=== PATIENT | female | born 1985 | race Two or more races ===

== ENCOUNTER 2017-11-06 14:34 | Emergency (ER) | payer OTHER ==
--- NOTE | 2017-11-06 14:50 | PDOC ---
Rapid Medical Evaluation Time Seen by Provider: 11/06/17 14:46 Medical Evaluation: Allergies Allergy/AdvReac Type Severity Reaction Status Date / Time No Known Allergies Allergy Verified 06/05/14 10:33 11/06/17 14:46 I have performed a brief in-person evaluation of this patient. The patient presents with a chief complaint of: awoke up w/ L sided neck pain x several days while in [place], seen in ED in [facility] and pa w/ patriciol and jean-paul but states pain persists, mostly in her LUE now Pertinent physical exam findings:ttp to L upper arm, FROMI, no ttp to cspine w/ FROMI I have ordered the following:upreg/ua The patient will proceed to the ED for further evaluation. Discharge Disposition - Diagnosis Neck strain - Referrals Referrals: Lashae Bourne MD [Primary Care Provider] - - Patient Instructions - Post Discharge Activity
[2017-11-06 14:51] VITALS: BP 119/78; PULSE 93; TEMP 98.9; BMI 22.6
--- NOTE | 2017-11-06 15:11 | PDOC ---
History of Present Illness - General Chief Complaint: Pain Stated Complaint: PAIN,NUMBNESS Time Seen by Provider: 11/06/17 14:46 - History of Present Illness Initial Comments: 32-year-old female presents for evaluation of cervical spine pain with left arm radiculopathy times a week and a half. She states she was seen in the emergency room in [place] was given a shot of Toradol, a prescription for Naprosyn and Flexeril and she has minimal relief. She has no comorbidities. She takes oral control pills. 11/06/17 15:07 Past History - Past Medical History Allergies/Adverse Reactions: Allergies Allergy/AdvReac Type Severity Reaction Status Date / Time No Known Allergies Allergy Verified 11/06/17 14:46 Home Medications: Ambulatory Orders NK [No Known Home Medication] 06/05/14 Asthma: Yes COPD: No - Suicide/Smoking/Psychosocial Hx Smoking History: Never smoked Hx Alcohol Use: No Substance Use Type: None Review of Systems - Review of Systems Musculoskeletal: Yes: Neck Pain Neurological: Yes: See HPI, Numbness, Tingling All Other Systems: Reviewed and Negative *Physical Exam - Vital Signs Last Vital Signs Temp Pulse Resp BP Pulse Ox 98.9 F 93 H 17 119/78 100 11/06/17 14:47 11/06/17 14:47 11/06/17 14:47 11/06/17 14:47 11/06/17 14:47 - Physical Exam Comments: Cervical spine skin color and temperature are normal. She has decreased range of motion. Mild paracervical musculature spasm. 5 out of 5 strength in bilateral upper extremities. She has a positive Spurling maneuver. The Spurling maneuver produces left arm radicular symptoms. She has no gross sensorimotor deficits or upper extremity compartments are soft and nontender she is neurovascularly intact. 11/06/17 15:08 Medical Decision Making - Medical Decision Making 2-year-old female on an anti-inflammatory as well as a muscle relaxer for her left cervical spine pain and radicular symptoms. I will have her follow-up with spine surgery. I will not give her Medrol Dosepak because of the oral control. I have informed her of this. 11/06/17 15:08 *DC/Admit/Observation/Transfer Diagnosis at time of Disposition: Neck strain, Cervical radicular pain - Discharge Dispostion Disposition: HOME Condition at time of disposition: Stable Decision to Admit order: No - Referrals Referrals: Lashae Bourne MD [Primary Care Provider] - Perez Templeton MD [Staff Physician] - - Patient Instructions Printed Discharge Instructions: DI for Cervical Radiculopathy Additional Instructions: Return to the emergency room should her symptoms worsen or go unresolved. It's important few to follow-up with spine surgery for further evaluation and treatment options. Continue to take the medication as directed. - Post Discharge Activity
[2017-11-06 15:45] LABS: URINE APPEARANCE CLEAR; URINE BILIRUBIN NEGATIVE (<2.0 mg/dL); URINE COLOR YELLOW; URINE GLUCOSE (UA) NEGATIVE (NEGATIVE); URINE KETONE NEGATIVE (NEGATIVE); URINE LEUK ESTERASE TRACE (NEGATIVE); URINE NITRITE NEGATIVE (NEGATIVE); URINE PROTEIN NEGATIVE (NEGATIVE); URINE UROBILINOGEN NEGATIVE mg/dL (0.2-1.0)
[2017-11-06 15:51] LABS: EPI CELLS RARE /HPF (FEW); URINE BACTERIA RARE /hpf (NONE SEEN); URINE MUCUS RARE
[2017-11-06 16:06] LABS: URINE HYALINE CAST 47 /lpf
== END 2017-11-06 15:57 | disposition home or self-care (01) ==
LOC: JERFT 14:34
DX: M54.12 Radiculopathy, cervical region (principal); S16.1XXD Strain of muscle, fascia and tendon at neck level, subsequent encounter; X58.XXXD Exposure to other specified factors, subsequent encounter
CPT/HCPCS: 36415; 81003; 81015; 84703; 87086; 87491; 87591; 99281-25

== ENCOUNTER 2018-03-14 22:23 | Emergency (ER) | payer OTHER ==
[2018-03-14 22:28] VITALS: BP 123/67; PULSE 73; TEMP 97.8; BMI 22.6
--- NOTE | 2018-03-14 22:46 | PDOC ---
History of Present Illness - General Chief Complaint: Burn Stated Complaint: BURN Time Seen by Provider: 03/14/18 22:39 History Source: Patient Exam Limitations: No Limitations - History of Present Illness Initial Comments: Pt is a 32 yo F, with no significant PMH, who is presenting with a burn to the palmar side of the L hand. Around 6 pm this evening, the pt was transferring a pot from the oven to the stove-top, when she felt it start to fall, and caught the pot with her bare L hand. She took 400 mg Advil and topical burn spray OTC from the pharmacy, with minimal relief of pain. 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 Pt denies any loss of strength or sensation in the L hand or fingers, fevers/chills, headache, vision changes, chest pain, palpitations, SOB, nausea/vomiting, abdominal pain, urinary symptoms , diarrhea/constipation, or joint swelling. Pt denies any cigarette, alcohol, or drug use. Pt denies any recent travel or sick contacts. 03/15/18 00:15 Past History - Travel Traveled outside of the country in the last 30 days: No Close contact w/someone who was outside of country & ill: No - Past Medical History Allergies/Adverse Reactions: Allergies Allergy/AdvReac Type Severity Reaction Status Date / Time shellfish derived Allergy Mild Itching Verified 03/14/18 22:58 Home Medications: Ambulatory Orders NK [No Known Home Medication] 06/05/14 Asthma: Yes COPD: No Diabetes: No - Suicide/Smoking/Psychosocial Hx Smoking History: Never smoked Have you smoked in the past 12 months: No Information on smoking cessation initiated: No Hx Alcohol Use: No Drug/Substance Use Hx: No Substance Use Type: None Review of Systems - Review of Systems Able to Perform ROS?: Yes Is the patient limited Latvian proficient: No Constitutional: Yes: Weight Stable. No: Chills, Diaphoresis, Fever, Malaise, Weakness HEENTM: No: Recent change in vision, Nose Congestion, Hearing Loss, Throat Pain , Difficulty Swallowing Respiratory: No: Cough, Orthopnea, Shortness of Breath Cardiac (ROS): No: Chest Pain, Edema, Irregular Heart Rate, Lightheadedness, Palpitations, Syncope, Chest Tightness ABD/GI: No: Constipated, Diarrhea, Nausea, Poor Appetite, Poor Fluid Intake, Vomiting, Abdominal cramping : No: Burning, Pain, Urgency Musculoskeletal: No: Back Pain, Joint Pain, Joint Swelling, Muscle Pain, Muscle Weakness Integumentary: Yes: Change in Color (redness over L palm, see HPI), Erythema. No: Bruising, Lesions, Rash Neurological: No: Headache, Paresthesia, Tingling, Weakness, Unsteady Gait, Ataxia, Dizziness Psychiatric: No: Sleep Pattern Change, Change in Appetite Endocrine: No: Increased Urine, Change in Weight Hematologic/Lymphatic: No: Anemia, Blood Clots, Easy Bleeding, Easy Bruising All Other Systems: Reviewed and Negative *Physical Exam - Vital Signs Last Vital Signs Temp Pulse Resp BP Pulse Ox 97.8 F 73 16 123/67 100 03/14/18 22:25 03/14/18 22:25 03/14/18 22:25 03/14/18 22:25 03/14/18 22:25 - Physical Exam General Appearance: Yes: Nourished, Appropriately Dressed. No: Apparent Distress (pt lying comfortably, vitals stable, NAD) HEENT: positive: EOMI, PRIYANKA, Normal ENT Inspection, Normal Voice, Symmetrical, Pharynx Normal, Hearing Grossly Normal. negative: Scleral Icterus (R), Scleral Icterus (L), Pharyngeal Erythema, Tonsillar Exudate, Tonsillar Erythema, Nasal Congestion Neck: positive: Trachea midline, Normal Thyroid, Supple. negative: Tender, Rigid, Lymphadenopathy (R), Lymphadenopathy (L), Rigidity Respiratory/Chest: positive: Lungs Clear, Normal Breath Sounds. negative: Chest Tender, Respiratory Distress, Accessory Muscle Use, Crackles, Wheezing Cardiovascular: positive: Regular Rhythm, Regular Rate, S1, S2. negative: Edema , JVD, Murmur Vascular Pulses: Carotid (R): 4+, Carotid (L): 4+ (radial pulse +4 b/l) Gastrointestinal/Abdominal: positive: Normal Bowel Sounds, Flat, Soft. negative : Tender, Organomegaly, Pulsatile Mass, Distended, Guarding, Rebound Rectal Exam: positive: deferred Lymphatic: negative: Adenopathy, Tenderness Musculoskeletal: positive: Normal Inspection. negative: CVA Tenderness Extremity: positive: Normal Capillary Refill, Normal Inspection, Normal Range of Motion, Pelvis Stable. negative: Tender, Cyanosis, Pedal Edema, Erythema Integumentary: positive: Dry, Warm, Erythema (area of erythema over thumb-side of L palm, extending to proximal thumb and proximal index finger). negative: Normal Color, Rash, Ecchymosis, Bruising, Other (blisters or open skin) Neurologic: positive: pattern grader cutter II-XII NML intact, Fully Oriented, Alert, Normal Mood/ Affect, Normal Response, Motor Strength 5/5. negative: Numbness, Sensory Deficit, Other (no decreased sensation or decreased strength over L hand or fingers. L hand neurovascularly intact.) Medical Decision Making - Medical Decision Making Pt was seen at bedside, also will be seen by attending Dr. Ambriz. Pt presenting with a burn to the palmar side of the L hand. Around 6 pm this evening, the pt was transferring a pot from the oven to the stove-top, when she felt it start to fall, and caught the pot with her bare L hand. She took 400 mg Advil and topical burn spray OTC from the pharmacy, with minimal relief of pain. 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 Pt denies any loss of strength or sensation in the L hand or fingers, fevers/chills, headache , vision changes, chest pain, palpitations, SOB, nausea/vomiting, abdominal pain , urinary symptoms, diarrhea/constipation, or joint swelling. PE showed first-degree superficial burn (no blistering, weeping, or open areas of the skin) over L palmar region, extending to the proximal thumb and proximal index finger (<1% BSA). Pt has intact strength and sensation in the hand and fingers of the L hand, intact ROM of whole L hand and fingers (opposition, flexion, extension). Provided 1 percocet tablet, bacitracin ointment, and krelex wrap for improvement of pain and antibiotic control of burn area. Will continue to reassess pt and monitor for symptomatic improvement. 03/14/18 23:36 Pt declined percocet tablet, as it makes her nauseous, provided 650 mg Tylenol instead. Cleaned the area with sterile saline, applied silvedene ointment, and sterile krelex wrap. Advised pt about keeping the area clean with warm water and soap, and applying the ointment. Also providing 1 tube of bacitracin ointment from the pharmacy to take home. Considering benign exam, pt can be discharged to home with follow-up. Pt advised to follow-up with PCP in 1-2 days. Strict return precautions provided with pt understanding. 03/15/18 00:05 *DC/Admit/Observation/Transfer Diagnosis at time of Disposition: Burn, hand, first degree Qualifiers: Encounter type: initial encounter Burn of hand location: multiple sites Laterality: left Qualified Code(s): T23.192A - Burn of first degree of multiple sites of left wrist and hand, initial encounter - Discharge Dispostion Disposition: HOME Condition at time of disposition: Good Decision to Admit order: No - Referrals Referrals: Lashae Bourne MD [Primary Care Provider] - - Patient Instructions Printed Discharge Instructions: DI for [place] Additional Instructions: You were seen in the ER today for a burn to your hand. Please follow-up with your primary care doctor within 1-2 days to discuss your visit and make sure your symptoms have improved. Please return to the ER if you have any worsening pain, development of bleeding or blisters, development of fevers or chills, loss of consciousness, inability to tolerate food or fluids, or any other concerns. I have provided you with bacitracin ointment and a wrap for your hand. Please keep the area clean with warm water and soap, and apply the bacitracin ointment after it is cleaned. Please keep the area wrapped while you are at work. - Post Discharge Activity
--- NOTE | 2018-03-14 22:48 | PDOC ---
Attending Attestation - HPI HPI: 03/14/18 23:36 The patient is a 32 year old female, with no significant PMH who presents to the emergency department with a burn to the palm of her left hand at 6PM today. Patient states she was transferring a pot from the oven to the stove when she was burned. Patient immediately rinsed the area with water and has not noticed any blistering. Patient took 400mg of advil with no improvement. Patient is able to flex her fingers. The patient denies chest pain, shortness of breath, headache and dizziness. Denies fever, chills, nausea, vomit, diarrhea and constipation. Denies dysuria, frequency, urgency and hematuria. Allergies: NKA Past surgical history: None reported. Social history: No reported alcohol, drug or cigarette use. PCP: Dr. Fajardo - Physicial Exam PE: 03/14/18 23:37 agree with resident exam <Daniella Lewis - Last Filed: 03/14/18 23:36> - Resident Resident Name: Katelyn Anton - ED Attending Attestation I have performed the following: I have examined & evaluated the patient, The case was reviewed & discussed with the resident, I agree w/resident's findings & plan - HPI HPI: 03/14/18 23:33 agree with resident exam - Physicial Exam PE: 03/15/18 00:37 Pt has less than 18% of plamar area burned. Pt maintains good flexion and extension - Medical Decision Making 03/15/18 00:36 Pt will be given tdap; home with bacitracin to the burned area. Silvadene cream applied here. Pt will return for cellulitis <Kristin Ambriz - Last Filed: 03/15/18 00:37>
[2018-03-14] MEDS ORDERED: DIPHTH,PERTUSS(ACELL),TET 0.5 ML DISP.SYRIN IM ONE (23:35)
[2018-03-14] MEDS ORDERED: SILVER SULFADIAZINE 1% TOP CREAM 50 GM JAR TP ONE ×2 (23:52→23:54)
[2018-03-14] MEDS ORDERED: ACETAMINOPHEN 325 MG TABLET (FP) PO ONE (23:57)
[2018-03-15] MEDS ORDERED: ACETAMINOPHEN 325 MG TABLET (FP) ONE
[2018-03-15] MEDS ORDERED: BACITRACIN 15 GM TUBE TOPICAL OINTMENT TP SCH (10:00)
[2018-03-15] MEDS ORDERED: BACITRACIN 15 GM TUBE TOPICAL OINTMENT TP ONE (23:30)
== END 2018-03-15 00:24 | disposition home or self-care (01) ==
LOC: JER 22:23
PROC: 2W2FX4Z Dressing of Left Hand using Bandage (ICD-10-PCS; principal; 2018-03-14)
DX: T23.152A Burn of first degree of left palm, initial encounter (principal); T31.0 Burns involving less than 10% of body surface; X15.3XXA Contact with hot saucepan or skillet, initial encounter; Y93.G1 Activity, food preparation and clean up; Y92.010 Kitchen of single-family (private) house as the place of occurrence of the external cause; Y99.8 Other external cause status
CPT/HCPCS: 16020; 90715; 99282-25

== ENCOUNTER 2019-12-24 08:38 | Emergency (ER) | payer OTHER ==
[2019-12-24 08:52] VITALS: BP 136/82; PULSE 97; BMI 22.6
[2019-12-24 08:57] VITALS: TEMP 97.8
[2019-12-24] MEDS ORDERED: KETOROLAC TROMETHAMINE 30 MG/1 ML VIAL IM ONE (09:17)
[2019-12-24] MEDS ORDERED: diazePAM 5 MG TABLET PO ONE (09:17)
[2019-12-24] MEDS ORDERED: LIDOCAINE 5% TOPICAL PATCH TP ONE (09:17)
--- NOTE | 2019-12-24 09:18 | PDOC ---
History of Present Illness - General Chief Complaint: Pain, Acute Stated Complaint: SHOULDER PAIN Time Seen by Provider: 12/24/19 08:42 - History of Present Illness Initial Comments: 12/24/19 09:18 HPI: 34 y/o F with no pmh presenting with left shoulder pain. Pain first started 2weeks ago after sleeping on an air mattress and improved however 1 week ago she was moving furniture and the pain was exacerbated. She has been taking ibuprofen and doing heat packs with mild improvement but this morning pain was 10/10 with radiation into neck and scapula. She took ibuprofen around 6am without relief. She reports tingling sensation over the dorsal aspect of her left arm above the elbow. She reports limited motion due to pain. Denies FARR, LH, weakness, chest pain, SOB, abd pain, incontinence, LE weakness. PMHx: as noted above ROS: as noted SHx: Denies tobacco use; no alcohol use; no rec drugs Allergies: NKDA ROS: GENERAL/CONSTITUTIONAL: No fever or chills. No weakness. HEAD, EYES, EARS, NOSE AND THROAT: No change in vision. No ear pain or discharge. No sore throat. CARDIOVASCULAR: No chest pain or shortness of breath RESPIRATORY: No cough, wheezing, or hemoptysis. GASTROINTESTINAL: No nausea, vomiting, diarrhea or constipation. GENITOURINARY: No dysuria, frequency, or change in urination. MUSCULOSKELETAL: +left arm pain. SKIN: No rash NEUROLOGIC: No headache, vertigo, loss of consciousness, or change in strength /sensation. ENDOCRINE: No increased thirst. No abnormal weight change HEMATOLOGIC/LYMPHATIC: No anemia, easy bleeding, or history of blood clots. ALLERGIC/IMMUNOLOGIC: No hives or skin allergy. PE: GENERAL: Awake, alert, and fully oriented, no acute distress HEAD: No signs of trauma, normocephalic, atraumatic EYES: EOMI, sclera anicteric, conjunctiva clear ENT: Auricles normal inspection, hearing grossly normal, nares patent, oropharynx clear without exudates. Moist mucosa NECK: Normal ROM, no lymphadenopathy LUNGS: No increased work of breathing, symmetrical chest rise, clear to auscultation bilaterally, no wheezes, crackles or rhonchi HEART: Regular rate, regular rhythm, normal S1 and S2, no murmur, peripheral pulses 2+ and equal bilaterally. ABDOMEN: Soft, nondistended, nontender. No guarding, no rebound. No masses. No CVAT MUSCULOSKELETAL: limited ROM of LUE at shoulder joint secondary to pain, sensation intact, rn home care str 5/5, ttp along cervical paraspinal muscles, trapezius, scapula, deltoid NEUROLOGICAL: Cranial nerves II through XII grossly intact. Normal speech, stable gait, no focal sensorimotor deficits SKIN: Warm, Dry, normal turgor, no rashes or lesions noted Past History - Medical History Allergies/Adverse Reactions: Allergies Allergy/AdvReac Type Severity Reaction Status Date / Time shellfish derived Allergy Mild Itching Verified 12/24/19 08:48 Home Medications: Ambulatory Orders Diazepam [Valium] 5 mg PO Q8H PRN #10 tablet MDD 3 12/24/19 Ibuprofen [Motrin -] 600 mg PO TID PRN #90 tablet MDD 3 12/24/19 Lidocaine Patch Removal [Lidoderm Patch Removal] 1 each MC DAILY@2200 PRN #30 each MDD 1 12/24/19 Asthma: Yes COPD: No Diabetes: No - Reproductive History Is Patient Now?: No - Immunization History Immunization Up to Date: Yes - Psycho-Social/Smoking History Smoking History: Never smoked Have you smoked in the past 12 months: No Information on smoking cessation initiated: No - Substance Abuse Hx (Audit-C & DAST Scrn) How often the patient has a drink containing alcohol: Never Score: In Men: 4 or > Positive; In Women: 3 or > Positive: 0 Screen Result (Pos requires Nsg. Audit-10AR): Negative In the last yr the pt used illegal drug/Rx for NonMed reason: No Score: Yes response is considered Positive: 0 Screen Result (Positive result requires Nsg. DAST-10): Negative *Physical Exam - Vital Signs Last Vital Signs Temp Pulse Resp BP Pulse Ox 97.8 F 97 H 19 136/82 99 12/24/19 08:43 12/24/19 08:43 12/24/19 08:43 12/24/19 08:43 12/24/19 08:43 Medical Decision Making - Medical Decision Making 12/24/19 11:00 34 y/o F with no pmh presenting with left shoulder pain. VSS, AF. See exam above -toradol, valium, lidoderm patch -reassess 12/24/19 11:00 pain improved DCd with referral to ortho if pain doesnt improve all questions asnwered at this time sent with scripts for ibuprofen, lidroderm, valium Discharge - Discharge Information Problems reviewed: Yes Clinical Impression/Diagnosis: Muscle spasm, Radiculopathy Condition: Improved Disposition: HOME - Additional Discharge Information Prescriptions: Lidocaine Patch Removal [Lidoderm Patch Removal] 1 each MC DAILY@2200 PRN #30 each MDD 1 PRN Reason: Back Pain Ibuprofen [Motrin -] 600 mg PO TID PRN #90 tablet MDD 3 PRN Reason: Back Pain Diazepam [Valium] 5 mg PO Q8H PRN #10 tablet MDD 3 PRN Reason: Pain - Follow up/Referral Referrals: Lashae Bourne MD [Primary Care Provider] - Vidal Ferguson MD [Staff Physician] - Sriram Hwang MD [Staff Physician] - - Patient Discharge Instructions Patient Printed Discharge Instructions: Chronic Neck Pain, DI for Muscle Spasm Additional Instructions: You have muscle spasm in your trapezius. May also have some radicular pain radiating from your neck if this continues he should have an outpatient MRI discussed with your primary doctor for referral return for any sudden weakness numbness or any other concerns. For your symptoms you can take Motrin 600 mg every 8 hours as needed for pain. You can also use a Lidoderm patch to the tender area. You can take a muscle relaxer such as Valium 5 mg every 8 hours as needed for muscle spasm. Do not mix with alcohol or take with the sedatives it can make you very sleepy - Post Discharge Activity
[2019-12-24] MEDS ORDERED: diazePAM 5 MG TABLET ONE (09:22)
[2019-12-24] MEDS ORDERED: KETOROLAC TROMETHAMINE 30 MG/1 ML VIAL ONE (09:22)
[2019-12-24] MEDS ORDERED: LIDOCAINE 5% TOPICAL PATCH ONE (09:22)
--- NOTE | 2019-12-24 10:00 | PDOC ---
Documentation entered by Messi Lucas SCRIBE, acting as scribe for Madiha Rocha MD. Madiha Rocha MD: This documentation has been prepared by the Shayy stokes Xhesika, SCRIBE, under my direction and personally reviewed by me in its entirety. I confirm that the documentation accurately reflects all work, treatment, procedures, and medical decision making performed by me. Attending Attestation - Resident Resident Name: MelecioSonam - ED Attending Attestation I have performed the following: I have examined & evaluated the patient, The case was reviewed & discussed with the resident, I agree w/resident's findings & plan, Exceptions are as noted - HPI HPI: 12/24/19 09:16 The patient is a 34 year old female with no significant PMH of who presents to the emergency department for 2 weeks of L shoulder and neck pain. Pt states 2 weeks ago she fell asleep on her air mattress which caused her symptoms, was taking ibuprofen and using patches with improvement of symptoms. Pt states on Thursday (12/19/19), she was moving furniture which re-exacerbated her pain. Pt reports this morning she woke up in 02/03, severe pain starting at her L scapula radiating to her neck and L arm, prompting his arrival to the ED. Pt denies any weakness or focal deficits. no f/c The patient denies chest pain, shortness of breath, headache and dizziness. Denies fever, chills, cough, nausea, vomiting, diarrhea and constipation. Denies dysuria, frequency, urgency and hematuria. Allergies: NKDA. Shellfish derived PCP: Dr. Miramontes 12/24/19 09:45 - Physicial Exam PE: 12/24/19 09:46 7-year-old female history of hypertension hyperlipidemia hypothyroid CAD status post CABG breast CA status post lumpectomy and multiple prior abdominal surgeries here today complaining of abdominal pain. Patient describes an achy sensation in the epigastrium periumbilical region she has had it for about a week states she has had many ultrasounds in the past and has seen a GI Dr.Aidan ayoub denies any vomiting however today was feeling nauseous the prompted her to come to the ED no fever no chills denies any urinary symptoms no change to her stool no melena or bright red blood per rectum denies any chest pressure or pain and no shortness of breath no fevers no chills. Patient did not take anything for her symptoms and denies any moderating factors - Medical Decision Making 12/24/19 09:47 34-year-old female previous surgeries here today complaining of left trapezial pain neck pain rating down her arm and paresthesia in her left humerus. My exam the patient is neurologically intact is significant trapezial spasm Plan muscle relaxers anti-inflammatories we will send a UCG prior patient is informed that she may require an outpatient MRI should her symptoms persist told no heavy lifting for 1 week also given a Lidoderm patch for her symptoms Discharge - Discharge Information Problems reviewed: Yes Clinical Impression/Diagnosis: Muscle spasm, Radiculopathy Condition: Improved Disposition: HOME - Admission No - Additional Discharge Information Prescriptions: Lidocaine Patch Removal [Lidoderm Patch Removal] 1 each MC DAILY@2200 PRN #30 each MDD 1 PRN Reason: Back Pain Ibuprofen [Motrin -] 600 mg PO TID PRN #90 tablet MDD 3 PRN Reason: Back Pain Diazepam [Valium] 5 mg PO Q8H PRN #10 tablet MDD 3 PRN Reason: Pain - Follow up/Referral Referrals: Lashae Bourne MD [Primary Care Provider] - - Patient Discharge Instructions Patient Printed Discharge Instructions: Chronic Neck Pain, DI for Muscle Spasm Additional Instructions: You have muscle spasm in your trapezius. May also have some radicular pain radiating from your neck if this continues he should have an outpatient MRI discussed with your primary doctor for referral return for any sudden weakness numbness or any other concerns. For your symptoms you can take Motrin 600 mg every 8 hours as needed for pain. You can also use a Lidoderm patch to the tender area. You can take a muscle relaxer such as Valium 5 mg every 8 hours as needed for muscle spasm. Do not mix with alcohol or take with the sedatives it can make you very sleepy - Post Discharge Activity
[2019-12-24] MEDS ORDERED: LIDOCAINE PATCH REMOVAL MC SCH (22:00)
== END 2019-12-24 10:15 | disposition home or self-care (01) ==
LOC: JER 08:38
PROC: 3E0233Z Introduction of Anti-inflammatory into Muscle, Percutaneous Approach (ICD-10-PCS; principal; 2019-12-24)
DX: M62.838 Other muscle spasm (principal); M54.10 Radiculopathy, site unspecified
CPT/HCPCS: 84703; 96372; 99284-25

== ENCOUNTER 2019-12-27 10:53 | Emergency (ER) | payer OTHER ==
[2019-12-27 10:59] VITALS: BP 124/89; PULSE 134; TEMP 98.3; BMI 22.6
[2019-12-27] MEDS ORDERED: diazePAM CARPU-JECT 10 MG/2 ML DISP.SYRIN IVPUSH ONE (11:11)
[2019-12-27] MEDS ORDERED: ACETAMINOPHEN 1000 MG/100 ML VIAL (NON FORMULARY) IVPB ONE (11:11)
[2019-12-27] MEDS ORDERED: ACETAMINOPHEN INJECTION 100 ML IVPB ONE (11:24)
[2019-12-27] MEDS ORDERED: diazePAM CARPU-JECT 10 MG/2 ML DISP.SYRIN ONE (11:24)
--- NOTE | 2019-12-27 12:22 | PDOC ---
History of Present Illness - General Chief Complaint: Pain Stated Complaint: HURT SHOULDER Time Seen by Provider: 12/27/19 11:02 - History of Present Illness Initial Comments: 12/27/19 12:17 34-year-old female without comorbidities presents for right-sided neck pain and arm pain with radicular symptoms. Seen in the emergency room a few days ago given ibuprofen and Valium without much relief. No loss of bowel bladder function or saddle paresthesias. Past History - Medical History Allergies/Adverse Reactions: Allergies Allergy/AdvReac Type Severity Reaction Status Date / Time shellfish derived Allergy Mild Itching Verified 12/27/19 10:56 Home Medications: Ambulatory Orders Diazepam [Valium] 5 mg PO Q8H PRN #10 tablet MDD 3 12/24/19 Ibuprofen [Motrin -] 600 mg PO TID PRN #90 tablet MDD 3 12/24/19 Lidocaine Patch Removal [Lidoderm Patch Removal] 1 each MC DAILY@2200 PRN #30 each MDD 1 12/24/19 Asthma: Yes COPD: No Diabetes: No - Reproductive History Is Patient Now?: No - Immunization History Immunization Up to Date: No - Psycho-Social/Smoking History Smoking History: Never smoked Have you smoked in the past 12 months: No - Substance Abuse Hx (Audit-C & DAST Scrn) How often the patient has a drink containing alcohol: Never Score: In Men: 4 or > Positive; In Women: 3 or > Positive: 0 Screen Result (Pos requires Nsg. Audit-10AR): Negative In the last yr the pt used illegal drug/Rx for NonMed reason: No Score: Yes response is considered Positive: 0 Screen Result (Positive result requires Nsg. DAST-10): Negative Review of Systems - Review of Systems Constitutional: No: Fever : No: Incontinence Musculoskeletal: Yes: Neck Pain *Physical Exam - Vital Signs Last Vital Signs Temp Pulse Resp BP Pulse Ox 98.3 F 134 H 20 124/89 100 12/27/19 10:56 12/27/19 10:56 12/27/19 10:56 12/27/19 10:56 12/27/19 10:56 - Physical Exam 12/27/19 12:18 Cervical spine skin color and temperature normal range of motion is slightly limited. There is no midline tenderness. Mild bilateral paracervical musculature spasm and tenderness. Exquisite right-sided levator scapula tenderness. 5 out of 5 strength bilateral upper extremities without gross sensorimotor deficits neurovascular intact. ED Treatment Course - Medications Given in the ED: ED Medications Discontinued Medications Generic Name Dose Route Start Last Admin Trade Name Timothy PRN Reason Stop Dose Admin Acetaminophen 1,000 mg 12/27/19 11:11 12/27/19 11:28 Ofirmev Injection - IVPB 12/27/19 11:12 1,000 mg ONCE ONE Administration Diazepam 5 mg 12/27/19 11:11 12/27/19 11:28 Valium Injection - IVPUSH 12/27/19 11:12 5 mg ONCE ONE Administration Medical Decision Making - Medical Decision Making 12/27/19 12:18 Pain relieved after IV Ofirmev and Valium. Orthopedic surgery follow-up was stressed. Home exercise stretches shown encouraged gentle massage I have reviewed the pathophysiology with the patient. They are in agreement with the treatment plan all questions were answered to their satisfaction. Understanding for follow-up without fail was also conveyed to the patient. Again they are in agreement. Discharge - Discharge Information Problems reviewed: Yes Clinical Impression/Diagnosis: Cervical radicular pain, Muscle spasm Condition: Stable Disposition: HOME - Admission No - Follow up/Referral Referrals: Dieter Solares DO [Staff Physician] - - Patient Discharge Instructions Additional Instructions: Continue your Valium and ibuprofen. You may also add Tylenol as directed for pain. Return to the emergency room for worsening symptoms and without fail follow-up with orthopedic surgery in 2 to 3 days for further evaluation and treatment options. - Post Discharge Activity
== END 2019-12-27 12:27 | disposition home or self-care (01) ==
LOC: JERFT 10:53
PROC: 3E033NZ Introduction of Analgesics, Hypnotics, Sedatives into Peripheral Vein, Percutaneous Approach (ICD-10-PCS; principal; 2019-12-27)
PROC: 3E033GC Introduction of Other Therapeutic Substance into Peripheral Vein, Percutaneous Approach (ICD-10-PCS; 2019-12-27)
DX: M54.2 Cervicalgia (principal); M62.838 Other muscle spasm
CPT/HCPCS: 99284-25; J0131